=== PATIENT | male | born 1980 | race American Indian/Alaskan Native ===

== ENCOUNTER 2017-08-19 10:20 | Emergency (ER) | payer MEDICAID ==
[2017-08-19 10:20] VITALS: BMI 21.9
[2017-08-19 10:34] VITALS: BP 140/89; TEMP 98
[2017-08-19] MEDS ORDERED: Sodium Chloride 0.9% 1,000 ML IV SCH (11:00)
--- NOTE | 2017-08-19 11:04 | ED PDOC ---
Arrival/HPI - General Chief Complaint: High Blood Sugar Time Seen by Provider: 08/19/17 10:39 Historian: Patient - History of Present Illness Narrative History of Present Illness (Text): 08/19/17 1055 pt p/w + sudden onset of weakness/profuse sweating, + jittery, + unable to move his body, slurr speech, nearly passed out this morning and was noted by EMS to have a FS ~ 40s; pt states he was incarcerated recently and during incarceration , pt was not given his daily insulin over 48hours, as a result pt's FS > 200; pt states he has felt weak in general. When he got of detention, pt was seen[place]exam [place] [facility] [place] and was treated acutely for acute hyperglycemia; pt was given multiple fluid boluses and some insulin; pt states he was doing ok and was discharged home earlier this morning; pt states no fever/chills, no cp/sob/ palpitations, no mid abd pain, no n/v, no numbness/tingling, no urinary/bowel changes, no fall/trauma/sick contact, no travel; pt denied rashes, no other complaints; pt is here for further eval. prior to ED arrival, pt was given a bolus of D50, FS is now ~ 190s pt currently lives at home with mother pt is right hand dominate Time/Duration: Prior to Arrival Symptom Onset: Sudden Symptom Course: Improving Severity Level: 5 Activities at Onset: Rest Context: Home Past Medical History - Provider Review Nursing Documentation Reviewed: Yes - Travel History Have you recently traveled outside [place] w/in the past 3 mons?: No - Past History Past History: No Previous - Infectious Disease Hx of Infectious Diseases: None - Cardiac Hx Cardiac Disorders: No - Pulmonary Hx Respiratory Disorders: No - Neurological Hx Migraine: Yes - HEENT Hx HEENT Disorder: No - Renal Hx Renal Disorder: No - Endocrine/Metabolic Hx Diabetes Mellitus Type 1: Yes - Hematological/Oncological Hx Blood Disorders: No - Integumentary Hx Dermatological Disorder: No - Musculoskeletal/Rheumatological Hx Musculoskeletal Disorders: No - Gastrointestinal Hx Gastrointestinal Disorders: No - Genitourinary/Gynecological Hx Genitourinary Disorders: No - Psychiatric Hx Psychophysiologic Disorder: No Hx Depression: No Hx Emotional Abuse: No Hx Physical Abuse: No Hx Substance Use: No - Past Surgical History Past Surgical History: No Previous - Anesthesia Hx Anesthesia: No Hx Anesthesia Reactions: No Hx Malignant Hyperthermia: No - Suicidal Assessment Feels Threatened In Home Enviroment: No Family/Social History - Physician Review Nursing Documentation Reviewed: Yes Family/Social History: No Known Family HX Smoking Status: Never Smoked Hx Alcohol Use: No Hx Substance Use: Yes ([place]) Hx Substance Use Treatment: No Allergies/Home Meds Allergies/Adverse Reactions: Allergies No Known Allergies Allergy (Verified 08/19/17 10:34) Home Medications: Home Meds Medication Instructions Recorded Confirmed Insulin Glargine, Recombina 35 units SQ HS 08/19/17 08/19/17 [Lantus] Insulin Human Regular [HumuLIN R] 5 units SQ 08/19/17 Review of Systems - Review of Systems Constitutional: Normal Eyes: Normal ENT: Normal Respiratory: Normal Cardiovascular: Syncope. absent: Chest Pain, Palpitations Gastrointestinal: Normal. absent: Abdominal Pain, Nausea, Vomiting Genitourinary Male: Normal Musculoskeletal: Normal Skin: Normal Neurological: Dizziness. absent: Headache, Facial Droop Endocrine: Diaphoresis Hemo/Lymphatic: Normal Psychiatric: Normal Physical Exam Vital Signs Reviewed: Yes Vital Signs Temp Pulse Resp BP Pulse Ox 08/19/17 10:33 98.0 F 69 17 140/89 99 08/19/17 10:30 98 F 68 18 140/89 99 Temperature: Afebrile Blood Pressure: Normal Pulse: Regular Respiratory Rate: Normal Appearance: Positive for: Well-Appearing, Comfortable, Other (alert/awake, GCS = 15, oriented x 3, NAD, + comfortable, cooperative, follows command with ease) . No: Non-Toxic Pain Distress: None Mental Status: Positive for: Alert and Oriented X 3 Finger Stick Blood Glucose: 115 - Systems Exam Head: Present: Atraumatic, Normocephalic Pupils: Present: PERRL, Other (no nystagmus, no photophobia, sclera anicteric, visual field intact b/l) Extroacular Muscles: Present: EOMI Conjunctiva: Present: Normal Ears: Present: Normal Mouth: Present: Moist Mucous Membranes, Normal Teeth, Other (no drooling/stridor , no exudate/lesions, uvula/tongue are midline; no dysphonia) Pharnyx: Present: Normal Nose (External): Present: Atraumatic Nose (Internal): Present: Normal Inspection Neck: Present: Normal Range of Motion, Trachea Midline, Other (intact ROM, no midline tenderness, no step off, no nuchal rigidity, no meningeal signs). No: MIDLINE TENDERNESS Respiratory/Chest: Present: Clear to Auscultation, Good Air Exchange, Other ( CTA b/l, no w/r/r, no accessory muscle use noted, no tachypenia). No: Tachypneic Cardiovascular: Present: Regular Rate and Rhythm, Normal S1, S2. No: Murmurs, Tachycardic Abdomen: Present: Normal Bowel Sounds, Other (well nourished male, no focal tenderness, no chow's sign, no mcburney's point tenderness, no masses/rebound/ guarding/rigidity) Back: Present: Normal Inspection. No: CVA Tenderness, Midline Tenderness Upper Extremity: Present: Normal Inspection, Normal ROM, NORMAL PULSES, Neurovascularly Intact, Capillary Refill < 2s Lower Extremity: Present: Normal Inspection, NORMAL PULSES, Normal ROM, Neurovascularly Intact, Capillary Refill < 2 s, Other (+ ambulatory) Neurological: Present: GCS=15, CN II-XII Intact, Speech Normal Skin: Present: Warm, Normal Color, Other (cap refill < 1sec, no ulcerations, no petechiae) Psychiatric: Present: Alert, Oriented x 3 Medical Decision Making ED Course and Treatment: 08/19/17 11:00 Impression: taylor CASEY i have consider all the differential diagnosis regarding pt's chief medical complaints/clinical findings, including but are not limited to: decr FS A/P: decr FS - labs - observe - supportive care 08/19/17 13:26 pt is doing well pt without any distress FS > 100 pt is now eating pt is made aware of his medical results pt is encouraged smoking cessation if he smokes pt is encouraged fluid hydration pt will f/u as directed pt will be discharged home Re-evaluation Time: 13:10 Reassessment Condition: Improved - Lab Interpretations Lab Results: 08/19/17 11:10 08/19/17 11:10 Lab Results 08/19/17 13:01: POC Glucose (mg/dL) 182 H 08/19/17 11:10: pO2 49, VBG pH 7.29 L, VBG pCO2 54.0, VBG HCO3 26.0, VBG Total CO2 27.7, VBG O2 Sat (Calc) 83.0 H, VBG Base Excess -1.4 L, VBG Potassium 4.0, Sodium 136.0, Chloride 105.0, Glucose 176 H, Lactate 1.4, FiO2 21.0, Venous Blood Potassium 4.0 08/19/17 11:10: Sodium 136, Chloride 104, Potassium 4.2, Carbon Dioxide 24, Anion Gap 13, BUN 10, Creatinine 0.5 L, Est GFR ( Amer) > 60, Est GFR ( Non-Af Amer) > 60, Random Glucose 169 H, Calcium 9.1, Total Bilirubin 0.8, AST 26, ALT 36, Alkaline Phosphatase 63, Total Protein 6.6, Albumin 3.9, Globulin 2.7, Albumin/Globulin Ratio 1.4, Lipase 54 08/19/17 11:10: WBC 10.2 D, RBC 4.53, Hgb 13.6 L, Hct 38.3 L, MCV 84.5, MCH 30.0, MCHC 35.5, RDW 12.1, Plt Count 247, MPV 9.6, Gran % 78.7 H, Lymph % (Auto ) 16.3 L, [place] % (Auto) 4.6, Eos % (Auto) 0.2 L, Baso % (Auto) 0.2, Gran # 8.02 H, Lymph # (Auto) 1.7, [place] # (Auto) 0.5, Eos # (Auto) 0.0, Baso # (Auto) 0.02 I have reviewed the lab results: Yes Interpretation: Abnormal lab values (mildly elevated FS) - Medication Orders Current Medication Orders: Sodium Chloride (Sodium Chloride 0.9%) 1,000 mls @ 100 mls/hr IV .Q10H [facility] Last Admin: 08/19/17 11:21 Dose: 100 mls/hr eMAR Start Stop Document 08/19/17 11:21 EW (Rec: 08/19/17 11:21 JETO [id number]) Intravenous Solution Start Date 08/19/17 Start Time 11:21 Discontinued Medications Famotidine (Pepcid) 20 mg PO STAT STA Stop: 08/19/17 10:59 Last Admin: 08/19/17 11:21 Dose: 20 mg Disposition/Present on Arrival - Present on Arrival Any Indicators Present on Arrival: No History of DVT/PE: No History of Uncontrolled Diabetes: No Urinary Catheter: No History of Decub. Ulcer: No History Surgical Site Infection Following: None - Disposition Have Diagnosis and Disposition been Completed?: Yes Diagnosis: Hypoglycemia Disposition: HOME/ ROUTINE Disposition Time: 13:15 Patient Plan: Discharge Patient Problems: Current Active Problems Problem Status Onset Hypoglycemia Acute Condition: STABLE Discharge Instructions (ExitCare): Low Blood Sugar in People With Diabetes Print Language: URDU Additional Instructions: Make sure to see your doctor in 1-2 days DRINK PLENTY OF FLUIDS encourage you to stop smoking take your medications as prescribed RETURN TO ED IF worse pain, cant breath, persistent vomiting, high fever >101- 102 for hours, altered behavior, unable to urinate, slurr speech, arm/leg weakness, heavy/persistent bleeding, passing out, chest pain, or other medical emergencies Referrals: PCP,NO [Primary Care Provider] - Follow up with primary Forms: [employer] (Tajik)
[2017-08-19 11:27] LABS: BASO # 0.02 K/mm3 (0.0-2.0); BASO % 0.2 % (0.0-3.0); EOS % 0.2 % (1.5-5.0); GRAN # 8.02 (1.4-6.5); GRAN % 78.7 % (50.0-68.0); HEMOGLOBIN 13.6 g/dL (14.0-18.0); LYMPH # 1.7 (1.2-3.4); LYMPH % 16.3 % (22.0-35.0); MEAN CELL VOLUME 84.5 fl (80.0-105.0); MEAN CORPUSCULAR HGB CONC 35.5 g/dl (31.0-37.0); MEAN PLATELET VOLUME 9.6 fl (7.0-11.0); MONO # 0.5 (0.1-0.6); MONO % 4.6 % (1.0-6.0); RBC 4.53 10^6/uL (3.5-6.1); RED CELL DISTRIBUTION WIDTH 12.1 % (11.5-14.5); VENOUS BLOOD GAS BASE EXCESS -1.4 mmol/L (0.0-2.0); VENOUS BLOOD GAS PO2 49 mm/Hg (30-55); VENOUS BLOOD PH 7.29 (7.32-7.43); WHITE BLOOD COUNT 10.2 10^3/ul (4.5-11.0)
[2017-08-19 11:43] LABS: ALB/GLOB RATIO 1.4 (1.1-1.8); ALBUMIN 3.9 g/dL (3.0-4.8); ALT/SGPT 36 U/L (7-56); AST/SGOT 26 U/L (17-59); BLOOD UREA NITROGEN 10 mg/dL (7-21); CALCIUM 9.1 mg/dL (8.4-10.5); GFR AFRICAN-AMERICAN > 60; GFR NON-AFRICAN AMERICAN > 60; LIPASE 54 U/L (23-300)
[2017-08-19 13:24] VITALS: PULSE 80; RESP 18; O2SAT 98
== END 2017-08-19 13:27 | disposition home or self-care (01) ==
LOC: ED 10:20
DX: E10.649 Type 1 diabetes mellitus with hypoglycemia without coma (principal); Z79.4 Long term (current) use of insulin
CPT/HCPCS: 80053; 82803; 82948; 83690; 85025; 96360; 96361; 99285; J7040

== ENCOUNTER 2018-02-21 01:33 | Inpatient (IN) | payer MEDICAID ==
[2018-02-21] MEDS ORDERED: Sodium Chloride 0.9% 1,000 ML IV STA (01:46)
--- NOTE | 2018-02-21 01:50 | ED PDOC ---
Arrival/HPI - General Chief Complaint: Abdominal Pain Time Seen by Provider: 02/21/18 01:37 Historian: Patient - History of Present Illness Narrative History of Present Illness (Text): 02/21/18 01:50 Maxwell Maier is a 37 year old male, whose past medical history includes IDDM , who presents to the Emergency department complaining of vomiting. Patient states he was feeling ill throughout the day yesterday and developed nausea and vomiting tonight. Patient notes he did not eat much food yesterday.Occassional abdominal cramps. Patient denies any fever, chills, chest pain, shortness of breath, diarrhea, urinary symptoms, back pain, neck pain, headache, dizziness, or any other complaints. Symptom Onset: Gradual Symptom Course: Unchanged Activities at Onset: Light Context: Home Past Medical History - Provider Review Nursing Documentation Reviewed: Yes - Past History Past History: No Previous - Infectious Disease Hx of Infectious Diseases: None - Cardiac Hx Cardiac Disorders: No - Pulmonary Hx Respiratory Disorders: No - Neurological Hx Migraine: Yes - HEENT Hx HEENT Disorder: No - Renal Hx Renal Disorder: No - Endocrine/Metabolic Hx Diabetes Mellitus Type 1: Yes - Hematological/Oncological Hx Blood Disorders: No - Integumentary Hx Dermatological Disorder: No - Musculoskeletal/Rheumatological Hx Musculoskeletal Disorders: No - Gastrointestinal Hx Gastrointestinal Disorders: No - Genitourinary/Gynecological Hx Genitourinary Disorders: No - Psychiatric Hx Psychophysiologic Disorder: No Hx Depression: No Hx Emotional Abuse: No Hx Physical Abuse: No Hx Substance Use: Yes ([place]) - Past Surgical History Past Surgical History: No Previous - Anesthesia Hx Anesthesia: No Hx Anesthesia Reactions: No Hx Malignant Hyperthermia: No - Suicidal Assessment Feels Threatened In Home Enviroment: No Family/Social History - Physician Review Nursing Documentation Reviewed: Yes Family/Social History: Unknown Family HX Smoking Status: Never Smoked Hx Alcohol Use: No Hx Substance Use: Yes ([place]) Hx Substance Use Treatment: No Allergies/Home Meds Allergies/Adverse Reactions: Allergies No Known Allergies Allergy (Verified 02/21/18 01:43) Home Medications: Home Meds Medication Instructions Recorded Confirmed Insulin Glargine, Recombina 35 units SQ HS 08/19/17 08/19/17 [Lantus] Insulin Human Regular [HumuLIN R] 5 units SQ 08/19/17 Review of Systems - Physician Review All systems were reviewed & negative as marked: Yes - Review of Systems Constitutional: Normal. absent: Fevers Eyes: Normal ENT: Normal Respiratory: Normal. absent: SOB, Cough Cardiovascular: Normal Gastrointestinal: Nausea, Vomiting Genitourinary Male: Normal. absent: Dysuria, Frequency, Hematuria, Urinary Output Changes Musculoskeletal: Normal. absent: Back Pain, Neck Pain Skin: Normal. absent: Rash Neurological: Normal. absent: Headache, Dizziness Endocrine: Normal Hemo/Lymphatic: Normal Psychiatric: Normal Physical Exam Vital Signs Reviewed: Yes Vital Signs Temp Pulse Resp BP Pulse Ox 02/21/18 03:30 80 18 131/87 99 02/21/18 01:40 98.7 F 88 20 153/107 H 98 Temperature: Afebrile Blood Pressure: Normal Pulse: Regular Respiratory Rate: Normal Appearance: Positive for: Well-Appearing, Non-Toxic, Comfortable Pain Distress: None Mental Status: Positive for: Alert and Oriented X 3 - Systems Exam Head: Present: Atraumatic, Normocephalic Pupils: Present: PERRL Extroacular Muscles: Present: EOMI Conjunctiva: Present: Normal Mouth: Present: Moist Mucous Membranes Neck: Present: Normal Range of Motion Respiratory/Chest: Present: Clear to Auscultation, Good Air Exchange. No: Respiratory Distress, Accessory Muscle Use Cardiovascular: Present: Regular Rate and Rhythm, Normal S1, S2. No: Murmurs Abdomen: No: Tenderness, Distention, Peritoneal Signs Back: Present: Normal Inspection Upper Extremity: Present: Normal Inspection. No: Cyanosis, Edema Lower Extremity: Present: Normal Inspection. No: Edema Neurological: Present: GCS=15, CN II-XII Intact, Speech Normal Skin: Present: Warm, Dry, Normal Color. No: Rashes Psychiatric: Present: Alert, Oriented x 3, Normal Insight, Normal Concentration Medical Decision Making ED Course and Treatment: 02/21/18 01:50 Impression: 37 year old male complaining of nausea and vomiting. Plan: -- Labs -- IV fluids -- Pepcid -- Zofran -- Reassess and disposition Prior Visits: Notes and results from previous visits were reviewed. Progress Notes: 02/21/18 02:20 RN reports patient is still complaining of vomiting and abdominal pain. Reglan and Toradol ordered. 02/21/18 03:03 Labs reviewed, ph:7.19, anion gap: 28. glucose of 366. Pt placed on insulin drip 02/21/18 03:30 Case discussed with medical coding technician decision support manager, who is aware and agrees with plan. 02/21/18 03:[address] High, who is aware and agrees with plan. Accepts pt in to hospitalist service. Pt admitted to the ICU for DKA. - Critical Care Critical Care Minutes: 30 minutes - Lab Interpretations Lab Results: 02/21/18 01:48 02/21/18 01:48 Lab Results 02/21/18 03:11: pO2 71 H, VBG pH 7.19 L*, VBG pCO2 33.0 L, VBG HCO3 12.6 L, VBG O2 Sat (Calc) 93.4 H, VBG Base Excess -14.5 L 02/21/18 01:48: POC Glucose (mg/dL) 363 H 02/21/18 01:48: WBC 11.1 H, RBC 4.96, Hgb 15.0, Hct 43.4, MCV 87.5 D, MCH 30.2 , MCHC 34.6, RDW 12.3, Plt Count 255, MPV 10.7 02/21/18 01:48: Sodium 139, Potassium 4.5, Chloride 100, Carbon Dioxide 15 L, Anion Gap 28 H, BUN 17, Creatinine 1.0, Est GFR ( Amer) > 60, Est GFR ( Non-Af Amer) > 60, Random Glucose 366 H* D, Calcium 9.8, Total Bilirubin 1.2, AST 32, ALT 24, Alkaline Phosphatase 129 H D, Total Protein 8.1, Albumin 4.8, Globulin 3.4, Albumin/Globulin Ratio 1.4, Lipase 18 L I have reviewed the lab results: Yes - Medication Orders Current Medication Orders: Insulin Human Regular 100 (units/ Sodium Chloride) 100 mls @ 5 mls/hr IV .Q20H PRN; Protocol; 5 UNITS/HR PRN Reason: TITRATE PER MD ORDER Last Admin: 02/21/18 03:27 Dose: 5 mls/hr eMAR Start Stop Document 02/21/18 03:27 IT (Rec: 02/21/18 03:28 IT [id number]) Intravenous Solution Start Date 02/21/18 Start Time 03:28 MAR Blood Glucose Document 02/21/18 03:27 IT (Rec: 02/21/18 03:28 IT [id number]) Blood Glucose Finger Stick Blood Glucose (70-120) 368 Discontinued Medications Famotidine (Pepcid) 20 mg IVP STAT STA Stop: 02/21/18 01:47 Last Admin: 02/21/18 01:55 Dose: 20 mg IVP Administration Document 02/21/18 01:55 IT (Rec: 02/21/18 01:55 IT [id number]) Charges for Administration # of IVP Administrations 1 Sodium Chloride (Sodium Chloride 0.9%) 1,000 mls @ 999 mls/hr IV .Q1H1M STA Stop: 02/21/18 02:46 Last Admin: 02/21/18 01:55 Dose: 999 mls/hr eMAR Start Stop Document 02/21/18 01:55 IT (Rec: 02/21/18 01:56 IT [id number]) Intravenous Solution Start Date 02/21/18 Start Time 01:55 End Date 02/21/18 End time 02:55 Total Infusion Time 60 Ketorolac Tromethamine (Toradol) 30 mg IVP ONCE ONE Stop: 02/21/18 02:21 Last Admin: 02/21/18 02:29 Dose: 30 mg MAR Pain Assessment Document 02/21/18 02:29 IT (Rec: 02/21/18 02:29 IT [id number]) Pain Reassessment Is this a pain reassessment? No IVP Administration Document 02/21/18 02:29 IT (Rec: 02/21/18 02:29 IT [id number]) Charges for Administration # of IVP Administrations 1 Metoclopramide HCl (Reglan) 10 mg IVP ONCE ONE Stop: 02/21/18 02:21 Last Admin: 02/21/18 02:29 Dose: 10 mg IVP Administration Document 02/21/18 02:29 IT (Rec: 02/21/18 02:29 IT [id number]) Charges for Administration # of IVP Administrations 1 Morphine Sulfate (Morphine) 2 mg IVP STAT STA Stop: 02/21/18 02:58 Last Admin: 02/21/18 03:27 Dose: 2 mg MAR Pain Assessment Document 02/21/18 03:27 IT (Rec: 02/21/18 03:27 IT [id number]) Pain Reassessment Is this a pain reassessment? No Sleep Is patient sleeping during reassessment? No Presence of Pain Presence of Pain No Pain Scale Used Pain Scale Used Numeric IVP Administration Document 02/21/18 03:27 IT (Rec: 02/21/18 03:27 IT [id number]) Charges for Administration # of IVP Administrations 1 Ondansetron HCl (Zofran Inj) 4 mg IVP ONCE ONE Stop: 02/21/18 01:47 Last Admin: 02/21/18 01:55 Dose: 4 mg IVP Administration Document 02/21/18 01:55 IT (Rec: 02/21/18 01:55 IT [id number]) Charges for Administration # of IVP Administrations 1 - Scribe Statement The provider has reviewed the documentation as recorded by the Mike Rae Provider Scribe Attestation: All medical record entries made by the Scribe were at my direction and personally dictated by me. I have reviewed the chart and agree that the record accurately reflects my personal performance of the history, physical exam, medical decision making, and the department course for this patient. I have also personally directed, reviewed, and agree with the discharge instructions and disposition. Disposition/Present on Arrival - Present on Arrival Any Indicators Present on Arrival: No History of DVT/PE: No History of Uncontrolled Diabetes: No Urinary Catheter: No History of Decub. Ulcer: No History Surgical Site Infection Following: None - Disposition Have Diagnosis and Disposition been Completed?: Yes Diagnosis: DKA (diabetic ketoacidosis) Disposition: HOSPITALIZED Disposition Time: 03:37 Patient Plan: Admission Patient Problems: Current Active Problems Problem Status Onset DKA (diabetic ketoacidosis) Acute Condition: GUARDED
[2018-02-21 02:35] LABS: ALB/GLOB RATIO 1.4 (1.1-1.8); ALBUMIN 4.8 g/dL (3.0-4.8); ALT/SGPT 24 U/L (7-56); AST/SGOT 32 U/L (17-59); BLOOD UREA NITROGEN 17 mg/dL (7-21); CALCIUM 9.8 mg/dL (8.4-10.5); GFR NON-AFRICAN AMERICAN > 60; LIPASE 18 U/L (23-300)
[2018-02-21 02:53] LABS: MEAN CELL VOLUME 87.5 fl (80.0-105.0); MEAN CORPUSCULAR HEMOGLOBIN 30.2 pg (25.0-35.0); MEAN CORPUSCULAR HGB CONC 34.6 g/dl (31.0-37.0); MEAN PLATELET VOLUME 10.7 fl (7.0-11.0); RBC 4.96 10^6/uL (3.5-6.1); RED CELL DISTRIBUTION WIDTH 12.3 % (11.5-14.5); WHITE BLOOD COUNT 11.1 10^3/ul (4.5-11.0)
[2018-02-21] MEDS ORDERED: Morphine 2 mg/ml ISec IVP STA (02:57)
[2018-02-21] MEDS ORDERED: Insulin Regular 100 UNITS in Sodium Chloride 0.9% 99 ML IV PRN (03:03)
[2018-02-21 03:23] LABS: VENOUS BLOOD GAS BASE EXCESS -14.5 mmol/L (0.0-2.0); VENOUS BLOOD GAS PO2 71 mm/Hg (30-55)
[2018-02-21 03:25] LABS: VENOUS BLOOD PH 7.19 (7.32-7.43)
--- NOTE | 2018-02-21 04:05 | CP.PCM.HP ---
<Little Cheney - Last Filed: 02/21/18 05:02> History of Present Illness - History of Present Illness History of Present Illness: Little Cheney, PGY-1 H&P for ICU This is a 37 year old male with PMH of DM1 on insulin presenting to the ED for nausea, non bloody vomiting x10 and epigastric abdominal pain that began at 9pm. Abdominal pain is rated 7/10, non radiating, constant and sharp. Patient notes that he has had cold-like symptoms over the past day with non productive cough and runny nose. Patient states he is compliant with his insulin. He denies any recent trauma or recent lifestyle change. He denies CP, SOB, headaches, fevers, chills, back pain, diarrhea, urinary complaints, numbness, tingling, swelling, recent travel and sick contacts at home. 12 point ROS noted here, otherwise unremarkable. In ED, glucose noted to be 366, VBG pH of 7.19, CO2 33 and HCO3 of 12.6. GAP of 28. Patient started on insulin drip and given pepcid, zofran, reglan, toradol and morphine as well as 1L NS. PMH: as above PMD: has a new PMD on [facility] [place], unsure of name SH: denies smoking, drinking and drugs Sx: abdominal hernia repair at 11 years old All: NKDA Meds: lantus 35units HS, humalog sliding scale FH: grandmother and grandfather from mom's side had colon cancer Present on Admission - Present on Admission Any Indicators Present on Admission: No Past Patient History - Infectious Disease Hx of Infectious Diseases: None - Past Social History Smoking Status: Never Smoked - CARDIAC Hx Cardiac Disorders: No - PULMONARY Hx Respiratory Disorders: No - NEUROLOGICAL Hx Migraine: Yes - HEENT Hx HEENT Problems: No - RENAL Hx Chronic Kidney Disease: No - ENDOCRINE/METABOLIC Hx Diabetes Mellitus Type 1: Yes - HEMATOLOGICAL/ONCOLOGICAL Hx Blood Disorders: No - INTEGUMENTARY Hx Dermatological Problems: No - MUSCULOSKELETAL/RHEUMATOLOGICAL Hx Musculoskeletal Disorders: No - GASTROINTESTINAL Hx Gastrointestinal Disorders: No - GENITOURINARY/GYNECOLOGICAL Hx Genitourinary Disorders: No - PSYCHIATRIC Hx Psychophysiologic Disorder: No Hx Depression: No Hx Emotional Abuse: No Hx Physical Abuse: No Hx Substance Use: Yes ([place]) - SURGICAL HISTORY Hx Surgeries: No - ANESTHESIA Hx Anesthesia: No Hx Anesthesia Reactions: No Hx Malignant Hyperthermia: No Meds Allergies/Adverse Reactions: Allergies Allergy/AdvReac Type Severity Reaction Status Date / Time No Known Allergies Allergy Verified 02/21/18 01:43 Physical Exam - Constitutional Appears: No Acute Distress - Head Exam Head Exam: ATRAUMATIC, NORMAL INSPECTION - Eye Exam Eye Exam: EOMI. absent: Conjunctival injection Pupil Exam: PERRL - ENT Exam ENT Exam: Mucous Membranes Dry - Respiratory Exam Respiratory Exam: Clear to Auscultation Bilateral. absent: Wheezes, Respiratory Distress - Cardiovascular Exam Cardiovascular Exam: REGULAR RHYTHM, +S1, +S2. absent: Tachycardia - GI/Abdominal Exam GI & Abdominal Exam: Normal Bowel Sounds, Soft. absent: Distended, Guarding, Hernia Additional comments: minimal epigastric tenderness appreciated - Extremities Exam Extremities exam: Positive for: tenderness. Negative for: calf tenderness - Neurological Exam Neurological exam: Alert, CN II-XII Intact, Oriented x3 - Skin Skin Exam: Dry, Normal Color, Warm Results - Vital Signs Recent Vital Signs: Last Vital Signs Temp 98.7 F 02/21/18 01:40 Pulse 88 02/21/18 01:40 Resp 20 02/21/18 01:40 BP 153/107 H 02/21/18 01:40 Pulse Ox 98 02/21/18 01:40 - Labs Result Diagrams: 02/21/18 01:48 02/21/18 01:48 Assessment & Plan - Assessment and Plan (Free Text) Assessment: This is a 37 year old male with PMH of DM1 on insulin presenting to the hospital for management of DKA Plan: Neuro: -maintain normothermia -AAO x3, moving extremities spontaneously past midline Cardio: -maintain MAP>65 -will monitor vitals including HR and BP Lungs: -SaO2 >90% -supplementary O2 PRN -CXR pending Renal: -maintain euvolemia -avoid nephrotoxic agents, hypochloremia -replace electrolytes as needed -BUN/Cr WNL -VBG shows pH of 7.19 and CO2 of 33. Bicarb is 15 Heme: -Hg is WNL -DVT ppx with heparin Endo: -currently on insulin drip at 5 units/hr -Receiving NS at 200cc/hr -received 20mEQ KCl IV -BMP q4 -GAP on admission of 23 -when glucose <250, will start D5 -U/A pending -hypoglycemia protocol ID: -WBC is 11.1 today, afebrile. -blood culture, urine culture pending GI: -NPO diet for now -GI prophylaxis with pepcid Patient seen and case discussed with attending, Dr. High <Rebekah High - Last Filed: 02/21/18 06:37> Results - Vital Signs Recent Vital Signs: Last Vital Signs Temp 98.0 F 02/21/18 04:46 Pulse 76 02/21/18 04:46 Resp 17 02/21/18 04:46 BP 128/72 02/21/18 04:46 Pulse Ox 98 02/21/18 04:46 - Labs Result Diagrams: 02/21/18 01:48 02/21/18 01:48 Labs: Laboratory Results - last 24 hr 02/21/18 02/21/18 02/21/18 05:02 05:15 05:57 POC Glucose (mg/dL) 252 H 150 H Urine Color Yellow Urine Appearance Clear Urine pH 6.0 Ur Specific [place] 1.025 Urine Protein 30 H Urine Glucose (UA) 500 H Urine Ketones >=80 Urine Blood Small H Urine Nitrate Negative Urine Bilirubin Negative Urine Urobilinogen 0.2 Ur Leukocyte Esterase Negative Urine RBC 0 - 2 Urine WBC 0 - 2 Ur Epithelial Cells 0 - 2 Attending/Attestation - Attestation I have personally seen and examined this patient.: Yes I have fully participated in the care of the patient.: Yes I have reviewed all pertinent clinical information: Yes
[2018-02-21] MEDS ORDERED: Sodium Chloride 0.9% 1,000 ML IV SCH (04:30)
[2018-02-21] MEDS ORDERED: Dextrose 50% SYRINGE Inj (50 ml) IV PRN (05:04)
[2018-02-21] MEDS ORDERED: Potassium Chloride 20 mEq ER Tab PO ONE (05:12)
[2018-02-21 06:08] LABS: URINE BILIRUBIN NEGATIVE (NEGATIVE); URINE BLOOD SMALL (NEGATIVE); URINE GLUCOSE (UA) 500 mg/dL (NEGATIVE); URINE LEUKOCYTE ESTERASE NEGATIVE Leu/uL (NEGATIVE); URINE PROTEIN 30 mg/dL (<30 mg/dL); URINE UROBILINOGEN 0.2 E.U./dL (<1 E.U./dL)
[2018-02-21 06:09] LABS: URINE APPEARANCE CLEAR (CLEAR); URINE COLOR YELLOW (YELLOW)
[2018-02-21] MEDS ORDERED: Dextrose 5%/0.45% NS 1,000 ML IV SCH (06:15)
[2018-02-21 06:23] LABS: URINE EPITHELIAL CELLS 0 - 2 /hpf (0-5); URINE RBC 0 - 2 /hpf (0-2); URINE WBC 0 - 2 /hpf (0-6)
[2018-02-21 07:06] VITALS: BMI 20.9
[2018-02-21 07:29] LABS: BASO # 0.02 K/mm3 (0.0-2.0); BASO % 0.2 % (0.0-3.0); EOS % 0.1 % (1.5-5.0); GRAN # 9.44 (1.4-6.5); GRAN % 87.7 % (50.0-68.0); HEMOGLOBIN 13.4 g/dL (14.0-18.0); LYMPH # 0.7 (1.2-3.4); LYMPH % 6.6 % (22.0-35.0); MEAN CELL VOLUME 87.4 fl (80.0-105.0); MEAN CORPUSCULAR HEMOGLOBIN 29.7 pg (25.0-35.0); MEAN PLATELET VOLUME 10.2 fl (7.0-11.0); MONO # 0.6 (0.1-0.6); MONO % 5.4 % (1.0-6.0); RBC 4.51 10^6/uL (3.5-6.1); RED CELL DISTRIBUTION WIDTH 12.5 % (11.5-14.5); WHITE BLOOD COUNT 10.8 10^3/ul (4.5-11.0)
[2018-02-21 08:07] LABS: ALB/GLOB RATIO 1.4 (1.1-1.8); ALBUMIN 4.2 g/dL (3.0-4.8); ALT/SGPT 25 U/L (7-56); AST/SGOT 33 U/L (17-59); BLOOD UREA NITROGEN 18 mg/dL (7-21); CALCIUM 9.3 mg/dL (8.4-10.5); GFR NON-AFRICAN AMERICAN > 60
--- NOTE | 2018-02-21 09:39 | RAD ---
Date of service: 02/21/2018 HISTORY: dka COMPARISON: No prior. FINDINGS: LUNGS: No active pulmonary disease. PLEURA: No significant pleural effusion identified, no pneumothorax apparent. CARDIOVASCULAR: Normal. OSSEOUS STRUCTURES: No significant abnormalities. VISUALIZED UPPER ABDOMEN: Normal. OTHER FINDINGS: None. IMPRESSION: No active disease.
[2018-02-21] MEDS ORDERED: Insulin Detemir 100 units/ml Vial (Levemir) SC ONE (09:53)
[2018-02-21 10:57] LABS: BLOOD UREA NITROGEN 18 mg/dL (7-21); GFR NON-AFRICAN AMERICAN > 60
[2018-02-21] MEDS ORDERED: Insulin Reg-HIGH-Coverage SC SCH (11:30)
[2018-02-21] MEDS ORDERED: Insulin Reg-MEDIUM-Coverage SC SCH (11:30)
--- NOTE | 2018-02-21 12:56 | CP.CCUPN ---
<Mil Nuñez - Last Filed: 02/21/18 12:51> CCU Subjective - Physician Review Subjective (Free Text): 02/21/18 13:06 Mil Nuñez DO PGY1 Internal Medicine Outsole Handler - ICU Progress Note Patient was seen and examined this AM at bedside Patient reported that 3-4 days prior he was feeling flu like symptoms He reports night prior to adm he stopped taking his insulin Patient denies any complaints this morning, no GI complaints voiced at this time Has a good appetite; given diet which he tolerated well Denies any s/s of infection remainder of 12 system ROS is otherwise negative CCU Objective - Vital Signs / Intake & Output Vital Signs (Last 4 hours): Vital Signs Temp Pulse Resp BP Pulse Ox 02/21/18 12:00 73 21 122/79 99 02/21/18 11:50 89 19 99 02/21/18 11:46 98.1 F 02/21/18 11:40 77 22 99 02/21/18 11:30 76 22 99 02/21/18 11:20 74 25 H 100 02/21/18 11:10 78 22 99 02/21/18 11:00 91 H 42 H 119/96 H 100 02/21/18 10:50 80 19 99 02/21/18 10:40 74 19 100 02/21/18 10:30 79 25 H 99 02/21/18 10:20 79 27 H 99 02/21/18 10:10 81 25 H 99 02/21/18 10:00 82 23 115/77 98 02/21/18 09:50 76 21 99 02/21/18 09:40 82 22 99 02/21/18 09:30 90 35 H 99 02/21/18 09:20 82 22 98 02/21/18 09:10 84 22 97 02/21/18 09:00 80 79 H 111/63 98 Intake and Output (Last 8hrs): Intake & Output 02/20/18 02/21/18 02/21/18 22:59 06:59 14:59 Intake Total 455.5 4.5 Output Total 600 Balance -144.5 4.5 Weight 60.781 kg Intake: IV 455.5 4.5 Left Antecubital 450 Output: Urine 600 Urine, Voided 600 - Physical Exam Head: Positive for: Atraumatic, Normocephalic Pupils: Positive for: PERRL Extroacular Muscles: Positive for: EOMI Conjunctiva: Positive for: Normal Mouth: Positive for: Moist Mucous Membranes Neck: Positive for: Normal Range of Motion Respiratory/Chest: Positive for: Clear to Auscultation, Good Air Exchange. Negative for: Respiratory Distress, Accessory Muscle Use Cardiovascular: Positive for: Regular Rate and Rhythm, Normal S1, S2. Negative for: Murmurs Abdomen: Negative for: Tenderness, Distention, Peritoneal Signs Back: Positive for: Normal Inspection Upper Extremity: Positive for: Normal Inspection. Negative for: Cyanosis, Edema Lower Extremity: Positive for: Normal Inspection. Negative for: Edema Neurological: Positive for: GCS=15, CN II-XII Intact, Speech Normal Skin: Positive for: Warm, Dry, Normal Color. Negative for: Rashes Psychiatric: Positive for: Alert, Oriented x 3, Normal Insight, Normal Concentration - Medications Active Medications: Active Medications Generic Name Dose Route Start Last Admin Trade Name Freq PRN Reason Stop Dose Admin Dextrose 0 ml 02/21/18 05:04 Dextrose 50% Inj IV STAT PRN Hypoglycemia Protocol Protocol Famotidine 40 mg 02/21/18 22:00 Pepcid PO HS GAGAN Heparin Sodium (Porcine) 5,000 units 02/21/18 10:00 02/21/18 10:05 Heparin SC 5,000 units Q12 GAGAN Administration Protocol Insulin Human Regular 0 units 02/21/18 11:30 02/21/18 11:55 Humulin R High SC 4 units ACHS GAGAN Administration Protocol - Patient Studies Lab Studies: Lab Studies 02/21/18 02/21/18 02/21/18 Range/Units 10:35 07:06 06:30 WBC (4.5-11.0) 10^3/ul RBC (3.5-6.1) 10^6/uL Hgb (14.0-18.0) g/dL Hct (42.0-52.0) % MCV (80.0-105.0) fl MCH (25.0-35.0) pg MCHC (31.0-37.0) g/dl RDW (11.5-14.5) % Plt Count (120.0-450.0) 10^3/uL MPV (7.0-11.0) fl Gran % (50.0-68.0) % Lymph % (Auto) (22.0-35.0) % Carson % (Auto) (1.0-6.0) % Eos % (Auto) (1.5-5.0) % Baso % (Auto) (0.0-3.0) % Gran # (1.4-6.5) Lymph # (Auto) (1.2-3.4) Carson # (Auto) (0.1-0.6) Eos # (Auto) (0.0-0.7) Baso # (Auto) (0.0-2.0) K/mm3 Sodium 137 140 (132-148) mmol/L Potassium 4.9 4.8 (3.6-5.0) mmol/L Chloride 107 108 H (98-107) mmol/L Carbon Dioxide 20 L 18 L (21-33) mmol/L Anion Gap 15 19 (10-20) BUN 18 18 (7-21) mg/dL Creatinine 0.8 0.9 (0.8-1.5) mg/dl Est GFR ( Amer) > 60 > 60 Est GFR (Non-Af Amer) > 60 > 60 POC Glucose (mg/dL) 143 H (65-110) mg/dL Random Glucose 197 H 152 H (70-110) mg/dL Calcium 9.0 9.3 (8.4-10.5) mg/dL Phosphorus 2.8 (2.5-4.5) mg/dL Magnesium 2.2 (1.7-2.2) mg/dL Total Bilirubin 0.6 (0.2-1.3) mg/dL AST 33 (17-59) U/L ALT 25 (7-56) U/L Alkaline Phosphatase 103 (38-126) U/L Total Protein 7.4 (5.8-8.3) g/dL Albumin 4.2 (3.0-4.8) g/dL Globulin 3.1 gm/dL Albumin/Globulin Ratio 1.4 (1.1-1.8) Urine Color (YELLOW) Urine Appearance (CLEAR) Urine pH (4.7-8.0) Ur Specific [place] (1.005-1.035) Urine Protein (<30 mg/dL) mg/dL Urine Glucose (UA) (NEGATIVE) mg/dL Urine Ketones (NEGATIVE) mg/dL Urine Blood (NEGATIVE) Urine Nitrate (NEGATIVE) Urine Bilirubin (NEGATIVE) Urine Urobilinogen (<1 E.U./dL) E.U./dL Ur Leukocyte Esterase (NEGATIVE) Kojo/uL Urine RBC (0-2) /hpf Urine WBC (0-6) /hpf Ur Epithelial Cells (0-5) /hpf 02/21/18 02/21/18 02/21/18 Range/Units 06:30 05:57 05:15 WBC 10.8 (4.5-11.0) 10^3/ul RBC 4.51 (3.5-6.1) 10^6/uL Hgb 13.4 L (14.0-18.0) g/dL Hct 39.4 L (42.0-52.0) % MCV 87.4 (80.0-105.0) fl MCH 29.7 (25.0-35.0) pg MCHC 34.0 (31.0-37.0) g/dl RDW 12.5 (11.5-14.5) % Plt Count 249 (120.0-450.0) 10^3/uL MPV 10.2 (7.0-11.0) fl Gran % 87.7 H (50.0-68.0) % Lymph % (Auto) 6.6 L (22.0-35.0) % Carson % (Auto) 5.4 (1.0-6.0) % Eos % (Auto) 0.1 L (1.5-5.0) % Baso % (Auto) 0.2 (0.0-3.0) % Gran # 9.44 H (1.4-6.5) Lymph # (Auto) 0.7 L (1.2-3.4) Carson # (Auto) 0.6 (0.1-0.6) Eos # (Auto) 0.0 (0.0-0.7) Baso # (Auto) 0.02 (0.0-2.0) K/mm3 Sodium (132-148) mmol/L Potassium (3.6-5.0) mmol/L Chloride (98-107) mmol/L Carbon Dioxide (21-33) mmol/L Anion Gap (10-20) BUN (7-21) mg/dL Creatinine (0.8-1.5) mg/dl Est GFR ( Amer) Est GFR (Non-Af Amer) POC Glucose (mg/dL) 150 H (65-110) mg/dL Random Glucose (70-110) mg/dL Calcium (8.4-10.5) mg/dL Phosphorus (2.5-4.5) mg/dL Magnesium (1.7-2.2) mg/dL Total Bilirubin (0.2-1.3) mg/dL AST (17-59) U/L ALT (7-56) U/L Alkaline Phosphatase (38-126) U/L Total Protein (5.8-8.3) g/dL Albumin (3.0-4.8) g/dL Globulin gm/dL Albumin/Globulin Ratio (1.1-1.8) Urine Color Yellow (YELLOW) Urine Appearance Clear (CLEAR) Urine pH 6.0 (4.7-8.0) Ur Specific [place] 1.025 (1.005-1.035) Urine Protein 30 H (<30 mg/dL) mg/dL Urine Glucose (UA) 500 H (NEGATIVE) mg/dL Urine Ketones >=80 (NEGATIVE) mg/dL Urine Blood Small H (NEGATIVE) Urine Nitrate Negative (NEGATIVE) Urine Bilirubin Negative (NEGATIVE) Urine Urobilinogen 0.2 (<1 E.U./dL) E.U./dL Ur Leukocyte Esterase Negative (NEGATIVE) Kojo/uL Urine RBC 0 - 2 (0-2) /hpf Urine WBC 0 - 2 (0-6) /hpf Ur Epithelial Cells 0 - 2 (0-5) /hpf 02/21/18 Range/Units 05:02 WBC (4.5-11.0) 10^3/ul RBC (3.5-6.1) 10^6/uL Hgb (14.0-18.0) g/dL Hct (42.0-52.0) % MCV (80.0-105.0) fl MCH (25.0-35.0) pg MCHC (31.0-37.0) g/dl RDW (11.5-14.5) % Plt Count (120.0-450.0) 10^3/uL MPV (7.0-11.0) fl Gran % (50.0-68.0) % Lymph % (Auto) (22.0-35.0) % Carson % (Auto) (1.0-6.0) % Eos % (Auto) (1.5-5.0) % Baso % (Auto) (0.0-3.0) % Gran # (1.4-6.5) Lymph # (Auto) (1.2-3.4) Carson # (Auto) (0.1-0.6) Eos # (Auto) (0.0-0.7) Baso # (Auto) (0.0-2.0) K/mm3 Sodium (132-148) mmol/L Potassium (3.6-5.0) mmol/L Chloride (98-107) mmol/L Carbon Dioxide (21-33) mmol/L Anion Gap (10-20) BUN (7-21) mg/dL Creatinine (0.8-1.5) mg/dl Est GFR ( Amer) Est GFR (Non-Af Amer) POC Glucose (mg/dL) 252 H (65-110) mg/dL Random Glucose (70-110) mg/dL Calcium (8.4-10.5) mg/dL Phosphorus (2.5-4.5) mg/dL Magnesium (1.7-2.2) mg/dL Total Bilirubin (0.2-1.3) mg/dL AST (17-59) U/L ALT (7-56) U/L Alkaline Phosphatase (38-126) U/L Total Protein (5.8-8.3) g/dL Albumin (3.0-4.8) g/dL Globulin gm/dL Albumin/Globulin Ratio (1.1-1.8) Urine Color (YELLOW) Urine Appearance (CLEAR) Urine pH (4.7-8.0) Ur Specific [place] (1.005-1.035) Urine Protein (<30 mg/dL) mg/dL Urine Glucose (UA) (NEGATIVE) mg/dL Urine Ketones (NEGATIVE) mg/dL Urine Blood (NEGATIVE) Urine Nitrate (NEGATIVE) Urine Bilirubin (NEGATIVE) Urine Urobilinogen (<1 E.U./dL) E.U./dL Ur Leukocyte Esterase (NEGATIVE) Kojo/uL Urine RBC (0-2) /hpf Urine WBC (0-6) /hpf Ur Epithelial Cells (0-5) /hpf Laboratory Results - last 24 hr 02/21/18 02/21/18 02/21/18 05:02 05:15 05:57 WBC RBC Hgb Hct MCV MCH MCHC RDW Plt Count MPV Gran % Lymph % (Auto) Carson % (Auto) Eos % (Auto) Baso % (Auto) Gran # Lymph # (Auto) [place] # (Auto) Eos # (Auto) Baso # (Auto) Sodium Potassium Chloride Carbon Dioxide Anion Gap BUN Creatinine Est GFR ( Amer) Est GFR (Non-Af Amer) POC Glucose (mg/dL) 252 H 150 H Random Glucose Calcium Phosphorus Magnesium Total Bilirubin AST ALT Alkaline Phosphatase Total Protein Albumin Globulin Albumin/Globulin Ratio Urine Color Yellow Urine Appearance Clear Urine pH 6.0 Ur Specific [place] 1.025 Urine Protein 30 H Urine Glucose (UA) 500 H Urine Ketones >=80 Urine Blood Small H Urine Nitrate Negative Urine Bilirubin Negative Urine Urobilinogen 0.2 Ur Leukocyte Esterase Negative Urine RBC 0 - 2 Urine WBC 0 - 2 Ur Epithelial Cells 0 - 2 02/21/18 02/21/18 02/21/18 06:30 06:30 07:06 WBC 10.8 RBC 4.51 Hgb 13.4 L Hct 39.4 L MCV 87.4 MCH 29.7 MCHC 34.0 RDW 12.5 Plt Count 249 MPV 10.2 Gran % 87.7 H Lymph % (Auto) 6.6 L [place] % (Auto) 5.4 Eos % (Auto) 0.1 L Baso % (Auto) 0.2 Gran # 9.44 H Lymph # (Auto) 0.7 L [place] # (Auto) 0.6 Eos # (Auto) 0.0 Baso # (Auto) 0.02 Sodium 140 Potassium 4.8 Chloride 108 H Carbon Dioxide 18 L Anion Gap 19 BUN 18 Creatinine 0.9 Est GFR ( Amer) > 60 Est GFR (Non-Af Amer) > 60 POC Glucose (mg/dL) 143 H Random Glucose 152 H Calcium 9.3 Phosphorus 2.8 Magnesium 2.2 Total Bilirubin 0.6 AST 33 ALT 25 Alkaline Phosphatase 103 Total Protein 7.4 Albumin 4.2 Globulin 3.1 Albumin/Globulin Ratio 1.4 Urine Color Urine Appearance Urine pH Ur Specific [place] Urine Protein Urine Glucose (UA) Urine Ketones Urine Blood Urine Nitrate Urine Bilirubin Urine Urobilinogen Ur Leukocyte Esterase Urine RBC Urine WBC Ur Epithelial Cells 02/21/18 10:35 WBC RBC Hgb Hct MCV MCH MCHC RDW Plt Count MPV Gran % Lymph % (Auto) Carson % (Auto) Eos % (Auto) Baso % (Auto) Gran # Lymph # (Auto) Carson # (Auto) Eos # (Auto) Baso # (Auto) Sodium 137 Potassium 4.9 Chloride 107 Carbon Dioxide 20 L Anion Gap 15 BUN 18 Creatinine 0.8 Est GFR ( Amer) > 60 Est GFR (Non-Af Amer) > 60 POC Glucose (mg/dL) Random Glucose 197 H Calcium 9.0 Phosphorus Magnesium Total Bilirubin AST ALT Alkaline Phosphatase Total Protein Albumin Globulin Albumin/Globulin Ratio Urine Color Urine Appearance Urine pH Ur Specific [place] Urine Protein Urine Glucose (UA) Urine Ketones Urine Blood Urine Nitrate Urine Bilirubin Urine Urobilinogen Ur Leukocyte Esterase Urine RBC Urine WBC Ur Epithelial Cells EKG/Cardiology Studies: Cardiology / EKG Studies 02/21/18 03:57 EKG [ELECTROCARDIOGRAM] Stat Comment: Reason For Exam: adm Fingerstick Blood Sugar Results: 217 Review of Systems - Review of Systems All systems: reviewed and no additional remarkable complaints except Review of Systems: as per HPI Critical Care Progress Note - Nutrition Nutrition: Nutrition Category Date Time Status Consistent Carbohydrate [DIET] Diets 02/21/18 Breakfast Ordered Assessment/Plan - Assessment and Plan (Free Text) Assessment: This is a 37 year old male with PMH of DM1 on insulin presenting to the hospital for management of DKA ML 2/2 URI vs Noncompliance days prior to adm Plan: Endo: -AG on adm 24; most recent BMP shows AG of 10 -Transitioned from drip to Levemir 25SC and ISS High coverage ACHS -Started low carb diet -DC'd D5 1/2 NS -C/w BMP q4 -U/A +Ketones, Glucose, Protein -hypoglycemia protocol Neuro: -maintain normothermia -AAO x3, moving extremities spontaneously past midline Cardio: -maintain MAP>65 -will monitor vitals including HR and BP Lungs: -SaO2 >90% -supplementary O2 PRN -CXR pending Renal: -maintain euvolemia -avoid nephrotoxic agents, hypochloremia -replace electrolytes as needed -BUN/Cr WNL Heme: -Hg is WNL -DVT ppx with heparin ID: -WBC is 11.1 today, afebrile. -blood culture, urine culture pending GI: -Low carb diet -GI prophylaxis with pepcid DISPO: Will follow up one more BMP and then transfer patient to med/surg Patient seen, examined, discussed w/ attending Dr. Africa Nuñez DO PGY1 Internal Medicine Outsole Handler - Date & Time Date: 02/21/18 Time: 12:56 <Karen Leger - Last Filed: 02/21/18 16:04> CCU Objective - Vital Signs / Intake & Output Vital Signs (Last 4 hours): Vital Signs Pulse Resp BP Pulse Ox 02/21/18 15:40 68 37 H 98 02/21/18 15:30 71 21 98 02/21/18 15:20 71 17 99 02/21/18 15:10 72 19 99 02/21/18 15:00 74 18 124/87 99 02/21/18 14:50 81 18 98 02/21/18 14:40 77 22 98 02/21/18 14:30 73 18 98 02/21/18 14:20 72 20 98 02/21/18 14:10 70 19 99 02/21/18 14:00 92 H 21 135/92 H 99 02/21/18 13:50 73 34 H 97 02/21/18 13:40 74 19 98 02/21/18 13:30 74 16 98 02/21/18 13:20 81 99 02/21/18 13:10 76 35 H 99 02/21/18 13:00 77 20 133/90 99 02/21/18 12:50 78 21 99 02/21/18 12:40 80 21 98 02/21/18 12:30 79 21 100 02/21/18 12:20 80 27 H 99 02/21/18 12:10 81 16 100 Intake and Output (Last 8hrs): Intake & Output 02/21/18 02/21/18 02/21/18 06:59 14:59 22:59 Intake Total 455.5 4.5 Output Total 600 Balance -144.5 4.5 Weight 134 lb Intake: IV 455.5 4.5 Left Antecubital 450 Output: Urine 600 Urine, Voided 600 - Medications Active Medications: Active Medications Generic Name Dose Route Start Last Admin Trade Name Freq PRN Reason Stop Dose Admin Dextrose 0 ml 02/21/18 05:04 Dextrose 50% Inj IV STAT PRN Hypoglycemia Protocol Protocol Famotidine 40 mg 02/21/18 22:00 Pepcid PO HS GAGAN Heparin Sodium (Porcine) 5,000 units 02/21/18 10:00 02/21/18 10:05 Heparin SC 5,000 units Q12 GAGAN Administration Protocol Sodium Chloride 1,000 mls @ 125 mls/hr 02/21/18 15:45 02/21/18 15:49 Sodium Chloride 0.45% IV 125 mls/hr .Q8H GAGAN Administration Insulin Detemir 24 unit 02/21/18 22:00 Levemir SC HS GAGAN Insulin Human Lispro 0 units 02/21/18 16:30 Humalog Low SC ACHS GAGAN Protocol Insulin Human Lispro 6 units 02/21/18 16:30 Humalog SC AC GAGAN - Patient Studies Lab Studies: Lab Studies 02/21/18 02/21/18 02/21/18 Range/Units 15:05 10:35 07:06 WBC (4.5-11.0) 10^3/ul RBC (3.5-6.1) 10^6/uL Hgb (14.0-18.0) g/dL Hct (42.0-52.0) % MCV (80.0-105.0) fl MCH (25.0-35.0) pg MCHC (31.0-37.0) g/dl RDW (11.5-14.5) % Plt Count (120.0-450.0) 10^3/uL MPV (7.0-11.0) fl Gran % (50.0-68.0) % Lymph % (Auto) (22.0-35.0) % Carson % (Auto) (1.0-6.0) % Eos % (Auto) (1.5-5.0) % Baso % (Auto) (0.0-3.0) % Gran # (1.4-6.5) Lymph # (Auto) (1.2-3.4) Carson # (Auto) (0.1-0.6) Eos # (Auto) (0.0-0.7) Baso # (Auto) (0.0-2.0) K/mm3 Sodium 137 137 (132-148) mmol/L Potassium 4.4 4.9 (3.6-5.0) mmol/L Chloride 107 107 (98-107) mmol/L Carbon Dioxide 22 20 L (21-33) mmol/L Anion Gap 12 15 (10-20) BUN 20 18 (7-21) mg/dL Creatinine 0.8 0.8 (0.8-1.5) mg/dl Est GFR ( Amer) > 60 > 60 Est GFR (Non-Af Amer) > 60 > 60 POC Glucose (mg/dL) 143 H (65-110) mg/dL Random Glucose 177 H 197 H (70-110) mg/dL Calcium 9.0 9.0 (8.4-10.5) mg/dL Phosphorus (2.5-4.5) mg/dL Magnesium (1.7-2.2) mg/dL Total Bilirubin (0.2-1.3) mg/dL AST (17-59) U/L ALT (7-56) U/L Alkaline Phosphatase (38-126) U/L Total Protein (5.8-8.3) g/dL Albumin (3.0-4.8) g/dL Globulin gm/dL Albumin/Globulin Ratio (1.1-1.8) Urine Color (YELLOW) Urine Appearance (CLEAR) Urine pH (4.7-8.0) Ur Specific [place] (1.005-1.035) Urine Protein (<30 mg/dL) mg/dL Urine Glucose (UA) (NEGATIVE) mg/dL Urine Ketones (NEGATIVE) mg/dL Urine Blood (NEGATIVE) Urine Nitrate (NEGATIVE) Urine Bilirubin (NEGATIVE) Urine Urobilinogen (<1 E.U./dL) E.U./dL Ur Leukocyte Esterase (NEGATIVE) Kojo/uL Urine RBC (0-2) /hpf Urine WBC (0-6) /hpf Ur Epithelial Cells (0-5) /hpf 02/21/18 02/21/18 02/21/18 Range/Units 06:30 06:30 05:57 WBC 10.8 (4.5-11.0) 10^3/ul RBC 4.51 (3.5-6.1) 10^6/uL Hgb 13.4 L (14.0-18.0) g/dL Hct 39.4 L (42.0-52.0) % MCV 87.4 (80.0-105.0) fl MCH 29.7 (25.0-35.0) pg MCHC 34.0 (31.0-37.0) g/dl RDW 12.5 (11.5-14.5) % Plt Count 249 (120.0-450.0) 10^3/uL MPV 10.2 (7.0-11.0) fl Gran % 87.7 H (50.0-68.0) % Lymph % (Auto) 6.6 L (22.0-35.0) % Carson % (Auto) 5.4 (1.0-6.0) % Eos % (Auto) 0.1 L (1.5-5.0) % Baso % (Auto) 0.2 (0.0-3.0) % Gran # 9.44 H (1.4-6.5) Lymph # (Auto) 0.7 L (1.2-3.4) Carson # (Auto) 0.6 (0.1-0.6) Eos # (Auto) 0.0 (0.0-0.7) Baso # (Auto) 0.02 (0.0-2.0) K/mm3 Sodium 140 (132-148) mmol/L Potassium 4.8 (3.6-5.0) mmol/L Chloride 108 H (98-107) mmol/L Carbon Dioxide 18 L (21-33) mmol/L Anion Gap 19 (10-20) BUN 18 (7-21) mg/dL Creatinine 0.9 (0.8-1.5) mg/dl Est GFR ( Amer) > 60 Est GFR (Non-Af Amer) > 60 POC Glucose (mg/dL) 150 H (65-110) mg/dL Random Glucose 152 H (70-110) mg/dL Calcium 9.3 (8.4-10.5) mg/dL Phosphorus 2.8 (2.5-4.5) mg/dL Magnesium 2.2 (1.7-2.2) mg/dL Total Bilirubin 0.6 (0.2-1.3) mg/dL AST 33 (17-59) U/L ALT 25 (7-56) U/L Alkaline Phosphatase 103 (38-126) U/L Total Protein 7.4 (5.8-8.3) g/dL Albumin 4.2 (3.0-4.8) g/dL Globulin 3.1 gm/dL Albumin/Globulin Ratio 1.4 (1.1-1.8) Urine Color (YELLOW) Urine Appearance (CLEAR) Urine pH (4.7-8.0) Ur Specific [place] (1.005-1.035) Urine Protein (<30 mg/dL) mg/dL Urine Glucose (UA) (NEGATIVE) mg/dL Urine Ketones (NEGATIVE) mg/dL Urine Blood (NEGATIVE) Urine Nitrate (NEGATIVE) Urine Bilirubin (NEGATIVE) Urine Urobilinogen (<1 E.U./dL) E.U./dL Ur Leukocyte Esterase (NEGATIVE) Kojo/uL Urine RBC (0-2) /hpf Urine WBC (0-6) /hpf Ur Epithelial Cells (0-5) /hpf 02/21/18 02/21/18 Range/Units 05:15 05:02 WBC (4.5-11.0) 10^3/ul RBC (3.5-6.1) 10^6/uL Hgb (14.0-18.0) g/dL Hct (42.0-52.0) % MCV (80.0-105.0) fl MCH (25.0-35.0) pg MCHC (31.0-37.0) g/dl RDW (11.5-14.5) % Plt Count (120.0-450.0) 10^3/uL MPV (7.0-11.0) fl Gran % (50.0-68.0) % Lymph % (Auto) (22.0-35.0) % Carson % (Auto) (1.0-6.0) % Eos % (Auto) (1.5-5.0) % Baso % (Auto) (0.0-3.0) % Gran # (1.4-6.5) Lymph # (Auto) (1.2-3.4) Carson # (Auto) (0.1-0.6) Eos # (Auto) (0.0-0.7) Baso # (Auto) (0.0-2.0) K/mm3 Sodium (132-148) mmol/L Potassium (3.6-5.0) mmol/L Chloride (98-107) mmol/L Carbon Dioxide (21-33) mmol/L Anion Gap (10-20) BUN (7-21) mg/dL Creatinine (0.8-1.5) mg/dl Est GFR ( Amer) Est GFR (Non-Af Amer) POC Glucose (mg/dL) 252 H (65-110) mg/dL Random Glucose (70-110) mg/dL Calcium (8.4-10.5) mg/dL Phosphorus (2.5-4.5) mg/dL Magnesium (1.7-2.2) mg/dL Total Bilirubin (0.2-1.3) mg/dL AST (17-59) U/L ALT (7-56) U/L Alkaline Phosphatase (38-126) U/L Total Protein (5.8-8.3) g/dL Albumin (3.0-4.8) g/dL Globulin gm/dL Albumin/Globulin Ratio (1.1-1.8) Urine Color Yellow (YELLOW) Urine Appearance Clear (CLEAR) Urine pH 6.0 (4.7-8.0) Ur Specific [place] 1.025 (1.005-1.035) Urine Protein 30 H (<30 mg/dL) mg/dL Urine Glucose (UA) 500 H (NEGATIVE) mg/dL Urine Ketones >=80 (NEGATIVE) mg/dL Urine Blood Small H (NEGATIVE) Urine Nitrate Negative (NEGATIVE) Urine Bilirubin Negative (NEGATIVE) Urine Urobilinogen 0.2 (<1 E.U./dL) E.U./dL Ur Leukocyte Esterase Negative (NEGATIVE) Kojo/uL Urine RBC 0 - 2 (0-2) /hpf Urine WBC 0 - 2 (0-6) /hpf Ur Epithelial Cells 0 - 2 (0-5) /hpf Laboratory Results - last 24 hr 02/21/18 02/21/18 02/21/18 05:02 05:15 05:57 WBC RBC Hgb Hct MCV MCH MCHC RDW Plt Count MPV Gran % Lymph % (Auto) [place] % (Auto) Eos % (Auto) Baso % (Auto) Gran # Lymph # (Auto) [place] # (Auto) Eos # (Auto) Baso # (Auto) Sodium Potassium Chloride Carbon Dioxide Anion Gap BUN Creatinine Est GFR ( Amer) Est GFR (Non-Af Amer) POC Glucose (mg/dL) 252 H 150 H Random Glucose Calcium Phosphorus Magnesium Total Bilirubin AST ALT Alkaline Phosphatase Total Protein Albumin Globulin Albumin/Globulin Ratio Urine Color Yellow Urine Appearance Clear Urine pH 6.0 Ur Specific [place] 1.025 Urine Protein 30 H Urine Glucose (UA) 500 H Urine Ketones >=80 Urine Blood Small H Urine Nitrate Negative Urine Bilirubin Negative Urine Urobilinogen 0.2 Ur Leukocyte Esterase Negative Urine RBC 0 - 2 Urine WBC 0 - 2 Ur Epithelial Cells 0 - 2 02/21/18 02/21/18 02/21/18 06:30 06:30 07:06 WBC 10.8 RBC 4.51 Hgb 13.4 L Hct 39.4 L MCV 87.4 MCH 29.7 MCHC 34.0 RDW 12.5 Plt Count 249 MPV 10.2 Gran % 87.7 H Lymph % (Auto) 6.6 L [place] % (Auto) 5.4 Eos % (Auto) 0.1 L Baso % (Auto) 0.2 Gran # 9.44 H Lymph # (Auto) 0.7 L Carson # (Auto) 0.6 Eos # (Auto) 0.0 Baso # (Auto) 0.02 Sodium 140 Potassium 4.8 Chloride 108 H Carbon Dioxide 18 L Anion Gap 19 BUN 18 Creatinine 0.9 Est GFR ( Amer) > 60 Est GFR (Non-Af Amer) > 60 POC Glucose (mg/dL) 143 H Random Glucose 152 H Calcium 9.3 Phosphorus 2.8 Magnesium 2.2 Total Bilirubin 0.6 AST 33 ALT 25 Alkaline Phosphatase 103 Total Protein 7.4 Albumin 4.2 Globulin 3.1 Albumin/Globulin Ratio 1.4 Urine Color Urine Appearance Urine pH Ur Specific [place] Urine Protein Urine Glucose (UA) Urine Ketones Urine Blood Urine Nitrate Urine Bilirubin Urine Urobilinogen Ur Leukocyte Esterase Urine RBC Urine WBC Ur Epithelial Cells 02/21/18 02/21/18 10:35 15:05 WBC RBC Hgb Hct MCV MCH MCHC RDW Plt Count MPV Gran % Lymph % (Auto) Carson % (Auto) Eos % (Auto) Baso % (Auto) Gran # Lymph # (Auto) Carson # (Auto) Eos # (Auto) Baso # (Auto) Sodium 137 137 Potassium 4.9 4.4 Chloride 107 107 Carbon Dioxide 20 L 22 Anion Gap 15 12 BUN 18 20 Creatinine 0.8 0.8 Est GFR ( Amer) > 60 > 60 Est GFR (Non-Af Amer) > 60 > 60 POC Glucose (mg/dL) Random Glucose 197 H 177 H Calcium 9.0 9.0 Phosphorus Magnesium Total Bilirubin AST ALT Alkaline Phosphatase Total Protein Albumin Globulin Albumin/Globulin Ratio Urine Color Urine Appearance Urine pH Ur Specific [place] Urine Protein Urine Glucose (UA) Urine Ketones Urine Blood Urine Nitrate Urine Bilirubin Urine Urobilinogen Ur Leukocyte Esterase Urine RBC Urine WBC Ur Epithelial Cells EKG/Cardiology Studies: Cardiology / EKG Studies 02/21/18 03:57 EKG [ELECTROCARDIOGRAM] Stat Comment: Reason For Exam: adm Critical Care Progress Note - Nutrition Nutrition: Nutrition Category Date Time Status Consistent Carbohydrate [DIET] Diets 02/21/18 Breakfast Ordered Addendum Addendum: 02/21/18 16:03 ICU Attending Addendum: Patient seen and examined. Case reviewed on round with housestaff. Agree with resident note above with the following additions/exceptions: 37M with DM admitted to ICU with DKA. Transitioned from insulin drip to SQ this AM Gap is closed bicarb improved patient eating repeat chem a few hours after stopping the insulin drip is WNL ok to transfer out of ICU Karen Leger MD [employer]
[2018-02-21 15:21] LABS: BLOOD UREA NITROGEN 20 mg/dL (7-21); GFR NON-AFRICAN AMERICAN > 60
[2018-02-21] MEDS: Sodium Chloride 0.45% 1,000 ML IV SCH (15:49)
--- NOTE | 2018-02-21 16:17 | CON ---
DATE: 02/21/2018 ENDOCRINOLOGY CONSULT LOCATION: In ICU 128, room 6. HISTORY OF PRESENT ILLNESS: This is a 37-year-old male with known history of type 1 insulin-dependent diabetes, presenting here with sudden onset of nausea, dyspepsia and vomiting and supervening hyperglycemic accelerations and was admitted and evaluated to be in diabetic ketoacidosis and dehydration and was placed on an insulin drip infusion as noted thereof. PAST MEDICAL HISTORY: As mentioned above, history of type 1 insulin-dependent diabetes, on Lantus taken as 35 units subcu at bedtime daily with regular insulin given as per sliding scale depending on his day to day carb counting as noted. FAMILY HISTORY: Positive for diabetes and hypertension. SOCIAL HISTORY: The patient has a supportive family. No known substance use, although admits to recreational use of marijuana. REVIEW OF SYSTEMS: As mentioned above. Admits to generalized body weakness with easy fatigability and tiredness and suboptimal energy level with recent onset of dizziness and lightheadedness, worse on the day of admission. No chest pains or palpitations or PNDs. His oral intake is variable with nausea, dyspepsia and vague upper abdominal pains with supervening intractable vomiting episodes. Also admits to marked polyuria, nocturia and polydipsia. PHYSICAL EXAMINATION: GENERAL: This is an average-built male, in no apparent distress. VITAL SIGNS: Blood pressure of 140/80; pulse of 70 beats per minute, regular; temperature 98; respirations 20; height is 5 feet 7 inches , weight is 134 pounds. HEENT: Head normocephalic. Eyes anicteric with pink conjunctivae. Funduscopy not possible at this time. Ears, nose and throat otherwise normal. NECK: Supple. Thyroid gland is normal in size. No carotid bruits or cervical adenopathy. CARDIOPULMONARY: Some adynamic precordium. S1, S2 are rapid and regular. LUNGS: Clear to auscultation. ABDOMEN: Flat, soft with positive bowel sounds. EXTREMITIES: No peripheral edema. Pulses are +2 bilaterally. LABORATORY DATA: His chemistries showed a BUN of 17, sodium 139, potassium 4.5, chloride 100, CO2 of 15, glucose 366 and creatinine 1. His glucose values have ranged from 143-150 and 252 and 363 mg/dL this morning. ASSESSMENT: This is a 37-year-old male with uncontrolled and decompensated type 1 insulin-dependent diabetes, presenting here with diabetic ketoacidosis and dehydration and is now being referred for endocrine evaluation and management. We will continue the vigorous IV hydration with normal saline running at 125 mL/hour to fully replenish his lost fluids and electrolytes and to prevent decompensation back to metabolic acidosis. We will also restart his basal and bolus insulin regimen, which is more physiologic to obviate further extremes of glycemic fluctuations and detailed orders have been given. We will start him with Humalog given as 6 units t.i.d. before meals and we will titrate incrementally as indicated to optimize metabolic control. We will add Levemir given as 20 units subcu at bedtime daily to start tonight and this will be actually lower dose compared to his outpatient management only because of the variability of his oral intake and also because of the food choices, which have yet to be determined. We will follow. Sarah Wong MD
[2018-02-21] MEDS: Insulin Lispro (humaLOG) LOW Coverage SC SCH ×2 (16:30→22:09)
[2018-02-21] MEDS: Insulin Lispro 1 UNITS/0.01 ML SC SCH (17:42)
[2018-02-21 20:44] LABS: BLOOD UREA NITROGEN 21 mg/dL (7-21); CALCIUM 9.5 mg/dL (8.4-10.5); GFR NON-AFRICAN AMERICAN > 60
--- NOTE | 2018-02-21 20:57 | CARD ---
APPROVED REPORT Date of service: 02/21/2018 EKG Measurement Heart [id number] <Conclusion> Normal sinus rhythm Possible Left atrial enlargement Borderline ECG
[2018-02-21] MEDS ORDERED: Dextrose 50% SYRINGE Inj (50 ml) IVP STA (21:02)
[2018-02-21] MEDS ORDERED: Benzocaine/Menthol (Cepacol) Lozenge MT PRN (21:04)
[2018-02-21] MEDS ORDERED: Dextrose 50% SYRINGE Inj (50 ml) ONE (21:12)
[2018-02-21] MEDS ORDERED: Insulin Detemir 100 units/ml Vial (Levemir) SC SCH (22:00)
[2018-02-22] MEDS: Sodium Chloride 0.45% 1,000 ML IV SCH (00:45)
[2018-02-22 02:36] VITALS: TEMP 98.5
[2018-02-22 07:05] LABS: BASO # 0.03 K/mm3 (0.0-2.0); BASO % 0.4 % (0.0-3.0); EOS # 0.4 (0.0-0.7); EOS % 4.8 % (1.5-5.0); GRAN # 4.25 (1.4-6.5); GRAN % 54.1 % (50.0-68.0); HEMOGLOBIN 12.2 g/dL (14.0-18.0); LYMPH # 2.6 (1.2-3.4); LYMPH % 32.4 % (22.0-35.0); MEAN CELL VOLUME 85.4 fl (80.0-105.0); MEAN CORPUSCULAR HEMOGLOBIN 29.1 pg (25.0-35.0); MEAN CORPUSCULAR HGB CONC 34.1 g/dl (31.0-37.0); MEAN PLATELET VOLUME 9.7 fl (7.0-11.0); MONO # 0.7 (0.1-0.6); MONO % 8.3 % (1.0-6.0); RBC 4.19 10^6/uL (3.5-6.1); RED CELL DISTRIBUTION WIDTH 12.3 % (11.5-14.5); WHITE BLOOD COUNT 7.9 10^3/ul (4.5-11.0)
[2018-02-22 07:07] LABS: ALB/GLOB RATIO 1.2 (1.1-1.8); ALBUMIN 3.4 g/dL (3.0-4.8); ALT/SGPT 29 U/L (7-56); AST/SGOT 30 U/L (17-59); BLOOD UREA NITROGEN 12 mg/dL (7-21); CALCIUM 8.6 mg/dL (8.4-10.5); GFR NON-AFRICAN AMERICAN > 60
[2018-02-22] MEDS: Insulin Lispro (humaLOG) LOW Coverage SC SCH ×2 (07:33→13:29)
[2018-02-22] MEDS: Insulin Lispro 1 UNITS/0.01 ML SC SCH ×2 (07:34→13:28)
[2018-02-22 08:27] VITALS: BP 129/88; PULSE 58; RESP 15; O2SAT 99
--- NOTE | 2018-02-22 16:30 | CP.PCM.DIS ---
<FredrickRudy - Last Filed: 02/22/18 16:33> Provider - Provider Date of Admission: 02/21/18 03:29 Attending physician: Shanda Pham MD Consults: Endo: Dr. Wong Time Spent in preparation of Discharge (in minutes): 40 Hospital Course - Lab Results Lab Results: Micro Results 02/21/18 05:30 Blood Blood Culture - Preliminary NO GROWTH AFTER 24 HOURS 02/21/18 06:00 Blood Blood Culture - Preliminary NO GROWTH AFTER 24 HOURS Most Recent Lab Values WBC 7.9 10^3/ul (4.5-11.0) D 02/22/18 05:45 RBC 4.19 10^6/uL (3.5-6.1) 02/22/18 05:45 Hgb 12.2 g/dL (14.0-18.0) L 02/22/18 05:45 Hct 35.8 % (42.0-52.0) L 02/22/18 05:45 MCV 85.4 fl (80.0-105.0) 02/22/18 05:45 MCH 29.1 pg (25.0-35.0) 02/22/18 05:45 MCHC 34.1 g/dl (31.0-37.0) 02/22/18 05:45 RDW 12.3 % (11.5-14.5) 02/22/18 05:45 Plt Count 234 10^3/uL (120.0-450.0) 02/22/18 05:45 MPV 9.7 fl (7.0-11.0) 02/22/18 05:45 Gran % 54.1 % (50.0-68.0) 02/22/18 05:45 Lymph % (Auto) 32.4 % (22.0-35.0) 02/22/18 05:45 [place] % (Auto) 8.3 % (1.0-6.0) H 02/22/18 05:45 Eos % (Auto) 4.8 % (1.5-5.0) 02/22/18 05:45 Baso % (Auto) 0.4 % (0.0-3.0) 02/22/18 05:45 Gran # 4.25 (1.4-6.5) 02/22/18 05:45 Lymph # (Auto) 2.6 (1.2-3.4) 02/22/18 05:45 [place] # (Auto) 0.7 (0.1-0.6) H 02/22/18 05:45 Eos # (Auto) 0.4 (0.0-0.7) 02/22/18 05:45 Baso # (Auto) 0.03 K/mm3 (0.0-2.0) 02/22/18 05:45 pO2 71 mm/Hg (30-55) H 02/21/18 03:11 VBG pH 7.19 (7.32-7.43) L* 02/21/18 03:11 VBG pCO2 33.0 (40-60) L 02/21/18 03:11 VBG HCO3 12.6 mmol/l (21-28) L 02/21/18 03:11 VBG O2 Sat (Calc) 93.4 % (40-65) H 02/21/18 03:11 VBG Base Excess -14.5 mmol/L (0.0-2.0) L 02/21/18 03:11 Sodium 140 mmol/L (132-148) 02/22/18 05:45 Potassium 3.7 mmol/L (3.6-5.0) 02/22/18 05:45 Chloride 108 mmol/L (98-107) H 02/22/18 05:45 Carbon Dioxide 25 mmol/L (21-33) 02/22/18 05:45 Anion Gap 11 (10-20) 02/22/18 05:45 BUN 12 mg/dL (7-21) 02/22/18 05:45 Creatinine 0.7 mg/dl (0.8-1.5) L 02/22/18 05:45 Est GFR ( Amer) > 60 02/22/18 05:45 Est GFR (Non-Af Amer) > 60 02/22/18 05:45 POC Glucose (mg/dL) 266 mg/dL (65-110) H 02/22/18 13:21 Random Glucose 89 mg/dL (70-110) 02/22/18 05:45 Calcium 8.6 mg/dL (8.4-10.5) 02/22/18 05:45 Phosphorus 2.7 mg/dL (2.5-4.5) 02/22/18 05:45 Magnesium 1.9 mg/dL (1.7-2.2) 02/22/18 05:45 Total Bilirubin 0.4 mg/dL (0.2-1.3) 02/22/18 05:45 AST 30 U/L (17-59) 02/22/18 05:45 ALT 29 U/L (7-56) 02/22/18 05:45 Alkaline Phosphatase 81 U/L (38-126) 02/22/18 05:45 Total Protein 6.3 g/dL (5.8-8.3) 02/22/18 05:45 Albumin 3.4 g/dL (3.0-4.8) 02/22/18 05:45 Globulin 2.9 gm/dL 02/22/18 05:45 Albumin/Globulin Ratio 1.2 (1.1-1.8) 02/22/18 05:45 Lipase 18 U/L (23-300) L 02/21/18 01:48 Urine Color Yellow (YELLOW) 02/21/18 05:15 Urine Appearance Clear (CLEAR) 02/21/18 05:15 Urine pH 6.0 (4.7-8.0) 02/21/18 05:15 Ur Specific [place] 1.025 (1.005-1.035) 02/21/18 05:15 Urine Protein 30 mg/dL (<30 mg/dL) H 02/21/18 05:15 Urine Glucose (UA) 500 mg/dL (NEGATIVE) H 02/21/18 05:15 Urine Ketones >=80 mg/dL (NEGATIVE) 02/21/18 05:15 Urine Blood Small (NEGATIVE) H 02/21/18 05:15 Urine Nitrate Negative (NEGATIVE) 02/21/18 05:15 Urine Bilirubin Negative (NEGATIVE) 02/21/18 05:15 Urine Urobilinogen 0.2 E.U./dL (<1 E.U./dL) 02/21/18 05:15 Ur Leukocyte Esterase Negative [place]/uL (NEGATIVE) 02/21/18 05:15 Urine RBC 0 - 2 /hpf (0-2) 02/21/18 05:15 Urine WBC 0 - 2 /hpf (0-6) 02/21/18 05:15 Ur Epithelial Cells 0 - 2 /hpf (0-5) 02/21/18 05:15 - Hospital Course Hospital Course: Rudy Alcala, PGY1 Discharge Summary for Dr. Pham Hospital Admission: Patient is a 37 year old male with PMH of DM1 on insulin presenting to the ED on 02/21 for nausea, non bloody vomiting x10 and epigastric abdominal pain that began at 9 pm. Abdominal pain is rated 7/10, non radiating, constant and sharp. Patient notes that he has had cold-like symptoms over the past few days with non productive cough and runny nose. Patient states he is compliant with his insulin. In ED, glucose noted to be 366, VBG pH of 7.19, CO2 33 and HCO3 of 12.6. GAP of 28. Patient was admitted for DKA and transferred to the ICU where he was given fluids and started on insulin gtt. CXR showed no active disease. EKG was NSR. Patient mentions that he is compliant with his medications and has not had an episode of DKA since over 6 years ago. Medical team was consulted for management. Patient's glucose improved significantly to below 200. Patient's repeat anion gap was noted to be 14. Insulin gtt was discontinued, patient was switched to subc insulin. He is now asymptomatic and doing well; transferred to floor. On the floor, patient did have an episode of hypoglycemia where his blood glucose dropped to 28 on 02/21 at night. Patient was asymptomatic and given an amp of D50, where his blood sugar normalized. Endocrinology has followed the case. In the hospital patient was on Levemir 20u and Humalog 6u. No issues with his blood glucose since then. Patient is hemodynamically stable and safe for discharge. Diabetic education was also provided. Upon Discharge: Patient has been cleared by endo for discharge. He is safe for discharge. Patient will c/w his home Insulin regimen and follow up with his PMD. Patient will be discharged on robitussin for cough that he has had for a few days now. Case was discussed and reviewed with Attending Physician, Dr. Pham. Discharge Exam - Head Exam Head Exam: ATRAUMATIC, NORMAL INSPECTION - Eye Exam Eye Exam: EOMI, Normal appearance, PERRL Pupil Exam: NORMAL ACCOMODATION, PERRL - ENT Exam ENT Exam: Mucous Membranes Moist, Normal Exam - Neck Exam Neck exam: Full Rom, Normal Inspection - Respiratory Exam Respiratory Exam: NORMAL BREATHING PATTERN, UNREMARKABLE. absent: Rales, Rhonchi, Wheezes, Respiratory Distress - Cardiovascular Exam Cardiovascular Exam: REGULAR RHYTHM, +S1, +S2 - GI/Abdominal Exam GI & Abdominal Exam: Normal Bowel Sounds - Extremities Exam Extremities exam: full ROM, normal capillary refill, normal inspection, pedal pulses present - Back Exam Back exam: NORMAL INSPECTION - Neurological Exam Neurological exam: Alert, CN II-XII Intact, Normal Gait, Oriented x3 - Psychiatric Exam Psychiatric exam: Normal Affect, Normal Mood - Skin Skin Exam: Dry, Intact, Normal Color, Warm Discharge Plan - Discharge Medications Prescriptions: guaiFENesin/Dextromethorphan [guaiFENesin-DM] 10 ml PO Q4 7 Days #42 udc - Follow Up Plan Condition: GUARDED Disposition: HOME/ ROUTINE Instructions: Low Blood Sugar, Adult (DC), Diabetes Type 1, Adult (DC), Diabetic Ketoacidosis, Diabetic Ketoacidosis (DC), Diabetic Ketoacidosis (GEN) Additional Instructions: 1. Please follow up with your Primary Care Doctor within 3-4 days of discharge. 2. Please resume your home insulin medication as prescribed. 3. You are given a new medication for your cough: Robitussin DM 10 mL every 4 hours for a total of 7 days. 4. Please return to the ED if your symptoms reoccur. Referrals: Sarah Wong MD [Medical Doctor] - <Shanda Pham - Last Filed: 02/23/18 15:48> Provider - Provider Date of Admission: 02/21/18 03:29 Attending physician: Shanda Pham MD Hospital Course - Lab Results Lab Results: Micro Results 02/21/18 05:30 Blood Blood Culture - Preliminary NO GROWTH AFTER 48 HOURS 02/21/18 06:00 Blood Blood Culture - Preliminary NO GROWTH AFTER 48 HOURS 02/21/18 04:00 Nose MRSA Culture (Admit) - Final MRSA NOT DETECTED 02/21/18 05:15 Urine,Clean Catch Urine Culture - Final No Growth (<1,000 CFU/ML) Most Recent Lab Values WBC 7.9 10^3/ul (4.5-11.0) D 02/22/18 05:45 RBC 4.19 10^6/uL (3.5-6.1) 02/22/18 05:45 Hgb 12.2 g/dL (14.0-18.0) L 02/22/18 05:45 Hct 35.8 % (42.0-52.0) L 02/22/18 05:45 MCV 85.4 fl (80.0-105.0) 02/22/18 05:45 MCH 29.1 pg (25.0-35.0) 02/22/18 05:45 MCHC 34.1 g/dl (31.0-37.0) 02/22/18 05:45 RDW 12.3 % (11.5-14.5) 02/22/18 05:45 Plt Count 234 10^3/uL (120.0-450.0) 02/22/18 05:45 MPV 9.7 fl (7.0-11.0) 02/22/18 05:45 Gran % 54.1 % (50.0-68.0) 02/22/18 05:45 Lymph % (Auto) 32.4 % (22.0-35.0) 02/22/18 05:45 [place] % (Auto) 8.3 % (1.0-6.0) H 02/22/18 05:45 Eos % (Auto) 4.8 % (1.5-5.0) 02/22/18 05:45 Baso % (Auto) 0.4 % (0.0-3.0) 02/22/18 05:45 Gran # 4.25 (1.4-6.5) 02/22/18 05:45 Lymph # (Auto) 2.6 (1.2-3.4) 02/22/18 05:45 [place] # (Auto) 0.7 (0.1-0.6) H 02/22/18 05:45 Eos # (Auto) 0.4 (0.0-0.7) 02/22/18 05:45 Baso # (Auto) 0.03 K/mm3 (0.0-2.0) 02/22/18 05:45 pO2 71 mm/Hg (30-55) H 02/21/18 03:11 VBG pH 7.19 (7.32-7.43) L* 02/21/18 03:11 VBG pCO2 33.0 (40-60) L 02/21/18 03:11 VBG HCO3 12.6 mmol/l (21-28) L 02/21/18 03:11 VBG O2 Sat (Calc) 93.4 % (40-65) H 02/21/18 03:11 VBG Base Excess -14.5 mmol/L (0.0-2.0) L 02/21/18 03:11 Sodium 140 mmol/L (132-148) 02/22/18 05:45 Potassium 3.7 mmol/L (3.6-5.0) 02/22/18 05:45 Chloride 108 mmol/L (98-107) H 02/22/18 05:45 Carbon Dioxide 25 mmol/L (21-33) 02/22/18 05:45 Anion Gap 11 (10-20) 02/22/18 05:45 BUN 12 mg/dL (7-21) 02/22/18 05:45 Creatinine 0.7 mg/dl (0.8-1.5) L 02/22/18 05:45 Est GFR ( Amer) > 60 02/22/18 05:45 Est GFR (Non-Af Amer) > 60 02/22/18 05:45 POC Glucose (mg/dL) 266 mg/dL (65-110) H 02/22/18 13:21 Random Glucose 89 mg/dL (70-110) 02/22/18 05:45 Calcium 8.6 mg/dL (8.4-10.5) 02/22/18 05:45 Phosphorus 2.7 mg/dL (2.5-4.5) 02/22/18 05:45 Magnesium 1.9 mg/dL (1.7-2.2) 02/22/18 05:45 Total Bilirubin 0.4 mg/dL (0.2-1.3) 02/22/18 05:45 AST 30 U/L (17-59) 02/22/18 05:45 ALT 29 U/L (7-56) 02/22/18 05:45 Alkaline Phosphatase 81 U/L (38-126) 02/22/18 05:45 Total Protein 6.3 g/dL (5.8-8.3) 02/22/18 05:45 Albumin 3.4 g/dL (3.0-4.8) 02/22/18 05:45 Globulin 2.9 gm/dL 02/22/18 05:45 Albumin/Globulin Ratio 1.2 (1.1-1.8) 02/22/18 05:45 Lipase 18 U/L (23-300) L 02/21/18 01:48 Urine Color Yellow (YELLOW) 02/21/18 05:15 Urine Appearance Clear (CLEAR) 02/21/18 05:15 Urine pH 6.0 (4.7-8.0) 02/21/18 05:15 Ur Specific [place] 1.025 (1.005-1.035) 02/21/18 05:15 Urine Protein 30 mg/dL (<30 mg/dL) H 02/21/18 05:15 Urine Glucose (UA) 500 mg/dL (NEGATIVE) H 02/21/18 05:15 Urine Ketones >=80 mg/dL (NEGATIVE) 02/21/18 05:15 Urine Blood Small (NEGATIVE) H 02/21/18 05:15 Urine Nitrate Negative (NEGATIVE) 02/21/18 05:15 Urine Bilirubin Negative (NEGATIVE) 02/21/18 05:15 Urine Urobilinogen 0.2 E.U./dL (<1 E.U./dL) 02/21/18 05:15 Ur Leukocyte Esterase Negative [place]/uL (NEGATIVE) 02/21/18 05:15 Urine RBC 0 - 2 /hpf (0-2) 02/21/18 05:15 Urine WBC 0 - 2 /hpf (0-6) 02/21/18 05:15 Ur Epithelial Cells 0 - 2 /hpf (0-5) 02/21/18 05:15 Attending/Attestation - Attestation I have personally seen and examined this patient.: Yes I have fully participated in the care of the patient.: Yes I have reviewed all pertinent clinical information, including history, physical exam and plan: Yes Notes (Text): 02/23/18 15:45 Attending note; Patient seen and examined with the resident. Patient is alert and awake. Denies any fevers, chills. Denies any nausea, vomiting. Tolerating diet well. Ambulating fine. Patient is a 37 year old male with PMH of DM1 on insulin presenting to the ED on 02/21 for nausea, non bloody vomiting x10 and epigastric abdominal pain. Found to have diabetic ketoacidosis. Treated with IV fluids and insulin drip. Currently on subcutaneous insulin. Blood sugar is better controlled. Endocrinology evaluation appreciated. Patient with a long-standing history of diabetes. Dietary education given. Patient will be discharged home. Advised to follow-up fingerstick at home and adjust insulin. Patient has insulin and other supplies at home. Patient will follow-up with PMD in [place].
[2018-02-22] MEDS ORDERED: Insulin Detemir 100 units/ml Vial (Levemir) SC SCH (22:00)
--- NOTE | 2018-02-22 22:05 | PN ---
DATE: 02/22/2018 ENDOCRINOLOGY FOLLOWUP NOTE LOCATION: Room 573. SUBJECTIVE: This is a 37-year-old male with recent uncontrolled type 1 insulin-dependent diabetes, presenting here with diabetic ketoacidosis and dehydration and is now being followed closely for metabolic management. He developed symptomatic hypoglycemia at bedtime last night with transient neuroglycopenic and hyperadrenergic manifestations, reversed by D50 bolus injections as given. His glycemic levels today have ranged from 119-194 and 266 mg/dL. His latest chemistry showed a BUN of 12, sodium 140, potassium 3.7, chloride 108, CO2 of 25, glucose 89, and creatinine 0.7. Because of the variability of his oral intake, we will also modify once again his basal and bolus insulin regimen and we will lower his Humalog to 6 units subcu t.i.d. before meals as ordered. We will also modify the basal insulin with Levemir to be given as 18 units subcu at bedtime daily to start tonight. We will modify the coverage scale to obviate hypoglycemia and a very low-dose coverage scale for Humalog insulin has been ordered. We will continue the IV hydration as given and obtain serial chemistries and supplement accordingly as needed. We will follow and advise accordingly. Sarah Wong MD
== END 2018-02-22 15:40 | disposition home or self-care (01) | DRG 294 ==
LOC: ED 01:33 → ERH 03:29 → ICU 04:39 → 5RSO 02-22 10:10
PROVIDERS: ADMIT Internal Medicine; ATTEND Internal Medicine
DX: E10.10 Type 1 diabetes mellitus with ketoacidosis without coma (principal); E86.0 Dehydration; E10.649 Type 1 diabetes mellitus with hypoglycemia without coma; F12.90 Cannabis use, unspecified, uncomplicated; Z83.3 Family history of diabetes mellitus; Z82.49 Family history of ischemic heart disease and other diseases of the circulatory system; Z80.0 Family history of malignant neoplasm of digestive organs; Z79.4 Long term (current) use of insulin; R40.2412 Glasgow coma scale score 13-15, at arrival to emergency department